=== PATIENT | female | born 1995 | race Caucasian/White ===

== ENCOUNTER 2018-06-29 08:43 | Emergency (ER) | payer BC ==
[2018-06-29 08:57] VITALS: BP 135/91
--- NOTE | 2018-06-29 09:09 | UC ---
Headache HPI - HPI Summary HPI Summary: Headaches for last 3 weeks. Restarted BCP; had stopped taking it 3 months previously. Worse than previously. More on right side of head. Denies hx of migraines. Yesterday for a short period of time she had some spots in her visual moore which disappeared on the own. Nausea without vomiting. Nurse's note: Pt has been having frequent headaches for about three weeks. vision changes, nausea, coming and going. pt has restarted a control med, which she is wondering is causing the headaches. MD: afebrile; 98 is pulse ox; 92 pulse; 135/91=BP, probably related to anxiety and pain. Everything was because he presses any poplitealPatient Chief Complaint: - History Of Current Complaint Chief Complaint: UCHeadache Stated Complaint: HEADACHE Time Seen by Provider: 06/29/18 09:03 Hx Last Menstrual Period: 05/15/18 Pain Intensity: 8 - Allergies/Home Medications Allergies/Adverse Reactions: Allergies Allergy/AdvReac Type Severity Reaction Status Date / Time sulfamethoxazole Allergy Rash Verified 06/29/18 08:58 trimethoprim Allergy Rash Verified 06/29/18 08:58 Home Medications: Home Medications Acetaminophen [Tylenol Extra Strength] 1,000 mg PO ONCE PRN 06/29/18 [History Confirmed 06/29/18] l-Norgest/E.estradiol-E.estrad [Camrese 0.15-0.03-0.01 mg Tab] 1 tab PO DAILY [History Confirmed 06/29/18] PMH/Surg Hx/FS Hx/Imm Hx - Additional Past Medical History Additional PMH: patient mentioned that rarely she has numbness below the right eye that is transient. Previously Healthy: Yes - rare headache - Surgical History Surgical History: None - Social History Alcohol Use: Weekly Substance Use Type: None Smoking Status (MU): Never Smoked Tobacco Review of Systems All Other Systems Reviewed And Are Negative: Yes Constitutional: Positive: Negative Skin: Positive: Negative Eyes: Positive: Other - transient floating "spots" ENT: Positive: Negative Respiratory: Positive: Negative Cardiovascular: Positive: Negative Gastrointestinal: Positive: Nausea. Negative: Vomiting Genitourinary: Positive: Negative Motor: Positive: Negative Neurovascular: Positive: Negative Musculoskeletal: Positive: Negative Neurological: Positive: Negative, Headache - right side of head. Negative: Paresthesia, Numbness Psychological: Positive: Negative Is Patient Immunocompromised?: No Physical Exam - Summary Physical Exam Summary: Appearance: The patient is well-nourished. She is holding her head, and looks uncomfortable. Eyes: Conjunctiva are clear. Pupils are equal and reactive to light and accommodation. Extra ocular muscle movement is intact. ENT: The hearing is grossly normal, the pharynx is normal, and the TMs are normal. There is no muffled or hoarse voice. No stridor. Neck: The neck is supple and there is no lymphadenopathy. Respiratory: The chest is nontender to palpation and without crepitus. The lungs are clear, there are normal breath sounds, and there is no respiratory distress. No wheezes, rales or rhonchi. Cardiovascular: Heart sounds reveal a regular rate and rhythm. There are no clicks, rubs or murmurs. There are no carotid bruits or thrills. Circulation is grossly intact. Abdomen: The abdomen is soft and nontender. There is no organomegaly. Bowel sounds are present and within normal limits. No point tenderness at McBurneys point. Musculoskeletal: Strength is intact. The patient moves all extremities. x. Neurological: The patient is alert. Motor and sensory are examination grossly intact. Speech is normal. Psychological: The patient displays age appropriate behavior Skin: Negative for rashes. Vital Signs: Initial Vital Signs Temp 97.8 F 06/29/18 08:50 Pulse 92 06/29/18 08:50 Resp 18 06/29/18 08:50 BP 135/91 06/29/18 08:50 Pulse Ox 98 06/29/18 08:50 Vital Signs Reviewed: Yes - Additional Comments Patient has a right-sided headache beginning in the occiput and radiating to the frontal region. Her examination is grossly normal. Her neurologic exam is normal. She is Romberg negative. Her fundi are benign. CT: NO ACUTE INTRACRANIAL PATHOLOGY. Headache Course/Dx - Course Course Of Treatment: Headaches for last 3 weeks. Restarted BCP; had stopped taking it 3 months previously. Worse than previously. More on right side of head. Denies hx of migraines. Yesterday for a short period of time she had some spots in her visual moore which disappeared on the own. Nausea without vomiting. Elevated BP noted. PE shows the patient uncomfortable but is normal neurologically. CT negative. Dx: migraine headache, right. Discussed with Dr. Parham who was present and with patient. Ibuprofen, diphenydramine and metoclopromide given here. Imitrex ordered. Patient will follow up with Dr. Holman. Medications review. Blood pressure elevation because patient is anxious and uncomfortable. - Differential Dx/Diagnosis Differential Diagnosis/HQI/PQRI: Subdural Hematoma, Migraine, Temporal Arteritis , Tension Headache Provider Diagnosis: Migraine Discharge - Sign-Out/Discharge Documenting (check all that apply): Patient Departure All imaging exams completed and their final reports reviewed: Yes - Discharge Plan Condition: Stable Disposition: HOME Prescriptions: SUMAtriptan TAB* [Imitrex TAB*] 50 mg PO SEE INSTRUCTIONS #10 tab MDD 2 Patient Education Materials: Migraine Headache (ED), Ocular Migraine (ED), Ibuprofen (By mouth) Referrals: Isatu Montague MD [Primary Care Provider] - Additional Instructions: WE DISCUSSED: You probably have a migraine headache. Your CT is normal. You have been given ibuprofen, metoclopramide and diphehydramine. You have been given a prescription for Imitrex. Call Dr. Holman for follow up. Go to ED for repeat episode. I will be here in two days. Call with any questions or concerns. - Billing Disposition and Condition Condition: STABLE Disposition: Home
[2018-06-29] MEDS: Ibuprofen TAB* 600 MG PO ONE (09:26)
[2018-06-29] MEDS: diPHENhydraMINE PO* 25 MG PO ONE (10:08)
[2018-06-29] MEDS: Metoclopramide TAB* 10 MG PO ONE (10:08)
== END 2018-06-29 10:32 | disposition home or self-care (01) ==
LOC: UCEAST 08:43
DX: G43.909 Migraine, unspecified, not intractable, without status migrainosus (principal); Z88.1 Allergy status to other antibiotic agents
CPT/HCPCS: 70450; 99212; A9270-GY; G0463